=== PATIENT | male | born 1990 ===

== ENCOUNTER 2017-09-19 19:36 | Inpatient (IN) | payer OTHER, BC ==
[2017-09-19] MEDS ORDERED: Oxycodone/Acetaminophen 5/325 mg Tab PO STA (19:46)
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
[2017-09-19] MEDS ORDERED: Morphine 2 mg/ml ISec IVP STA (20:32)
[2017-09-19] MEDS ORDERED: Morphine 4 mg/ml ISec IVP STA (20:35)
[2017-09-19 20:51] LABS: ALB/GLOB RATIO 1.4 (1.1-1.8); ALBUMIN 4.8 g/dL (3.0-4.8); ALT/SGPT 81 U/L (7-56); AST/SGOT 68 U/L (17-59); BLOOD UREA NITROGEN 19 mg/dL (7-21); CALCIUM 9.9 mg/dL (8.4-10.5); GFR AFRICAN-AMERICAN > 60; GFR NON-AFRICAN AMERICAN > 60
[2017-09-19 20:52] LABS: BASO # 0.03 K/mm3 (0.0-2.0); BASO % 0.3 % (0.0-3.0); EOS # 0.1 (0.0-0.7); GRAN # 7.61 (1.4-6.5); HEMOGLOBIN 16.3 g/dL (14.0-18.0); LYMPH # 1.5 (1.2-3.4); LYMPH % 14.9 % (22.0-35.0); MEAN CELL VOLUME 88.1 fl (80.0-105.0); MEAN CORPUSCULAR HEMOGLOBIN 31.9 pg (25.0-35.0); MEAN CORPUSCULAR HGB CONC 36.2 g/dl (31.0-37.0); MEAN PLATELET VOLUME 10.3 fl (7.0-11.0); MONO # 0.6 (0.1-0.6); MONO % 5.8 % (1.0-6.0); RBC 5.11 10^6/uL (3.5-6.1); RED CELL DISTRIBUTION WIDTH 12.7 % (11.5-14.5); WHITE BLOOD COUNT 9.8 10^3/ul (4.5-11.0)
[2017-09-19 20:56] LABS: INR 1.09 (0.93-1.08); PARTIAL THROMBOPLASTIN TIME 29.1 Seconds (25.1-36.5); PROTHROMBIN TIME 12.5 SECONDS (9.4-12.5)
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
[2017-09-19] MEDS ORDERED: Sodium Chloride 0.9% 1,000 ML IV STA (21:40)
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
[2017-09-19 22:53] LABS: TROPONIN I < 0.01 ng/mL
[2017-09-19 23:33] LABS: CK-MB 0.9 ng/mL (0.0-3.6)
--- NOTE | 2017-09-19 23:59 | US ---
EXAM: US Abdomen Limited, Right Upper Quadrant CLINICAL HISTORY: 26 years old, male; Abnormal findings; Abnormal lab test; Elevated liver enzymes; Additional info: Elevated lft TECHNIQUE: Real-time ultrasound of the right upper quadrant with image documentation. COMPARISON: No relevant prior studies available. FINDINGS: Liver: Fatty infiltration. No mass. No intrahepatic ductal dilatation. Gallbladder: No definite gallstones. No wall thickening. No pericholecystic fluid. No sonographic Allan's sign. Common bile duct: No dilatation. No stones. Pancreas: Obscured by overlying bowel gas. Right kidney: Normal echogenicity. No hydronephrosis. IMPRESSION: 1.No acute findings. 2.Non-acute findings are described above.
[2017-09-20] MEDS ORDERED: Morphine 4 mg/ml ISec IVP ONE (00:10)
[2017-09-20] MEDS ORDERED: Oxycodone/Acetaminophen 5/325 mg Tab PO PRN (02:52)
[2017-09-20] MEDS ORDERED: Morphine 4 mg/ml ISec IVP PRN (02:52)
[2017-09-20 05:25] LABS: BARBITURATES, UR NEGATIVE (NEGATIVE); BENZODIAZEPINES, UR NEGATIVE (NEGATIVE); OPIATES, UR POSITIVE (NEGATIVE); PHENCYCLIDINE, UR NEGATIVE (NEGATIVE)
--- NOTE | 2017-09-20 09:51 | CARD ---
APPROVED REPORT EKG Measurement Heart [id number] <Conclusion> Normal sinus rhythm Normal ECG
[2017-09-20] MEDS ORDERED: Midazolam 2 MG/2 ML VIAL ONE (09:52)
[2017-09-20] MEDS ORDERED: Propofol 10 mg/ml Inj (20 ML) ONE (09:52)
[2017-09-20] MEDS ORDERED: Rocuronium 10 mg/ml (5 ml) ONE (09:53)
--- NOTE | 2017-09-20 09:58 | RAD ---
HISTORY: admission COMPARISON: No prior. FINDINGS: LUNGS: No active pulmonary disease. PLEURA: No significant pleural effusion identified, no pneumothorax apparent. CARDIOVASCULAR: Normal. OSSEOUS STRUCTURES: No significant abnormalities. VISUALIZED UPPER ABDOMEN: Normal. OTHER FINDINGS: None. IMPRESSION: No active disease.
[2017-09-20] MEDS ORDERED: Bupivacaine 0.5% Inj(30mL) ONE ×2 (11:16→13:11)
[2017-09-20] MEDS ORDERED: Lidocaine 2% Inj (20ml) ONE (11:16)
[2017-09-20] MEDS ORDERED: Glycopyrrolate 0.2 mg/ml (2ml vial) ONE (13:03)
[2017-09-20] MEDS ORDERED: Neostigmine Methylsulfate 3mg/3ml Syringe IV ONE (13:03)
[2017-09-20] MEDS ORDERED: Lidocaine 1% Inj (20ml) ONE (13:11)
[2017-09-20] MEDS ORDERED: HYDROmorphone 0.5 mg/0.5 ml ISec IVP PRN (14:02)
--- NOTE | 2017-09-20 14:12 | PCM.ANESB3 ---
Femoral Nerve Block - Femoral Nerve Block Date of Procedure: 09/20/17 Anesthesiologist: Brenden Evans, M>D> Pre-Procedure Diagnosis: fracture left tibia Post-Procedure Diagnosis: fracture left tibia Procedure Performed: Femoral Nerve Block Left - Procedure Femoral Nerve Block: The procedure was explained to the patient that it is for the post-operative pain management. Consent was obtained after a thorough discussion with the patient regarding the benefits and possible complications of local anesthetic block of the femoral nerve at the inguinal crease area. The patient was brought to the operating room and standard monitors were applied. Time-out was held with the circulating nurse to confirm the correct surgery and the appropriate block. After surgery was done under general anesthesia. . The femoral artery was then carefully palpated. The ultrasound transducer was then applied to this area in the transverse plane and the femoral nerve was visualized lateral to the femoral artery and underneath the fascia iliaca. After thorough identification, the inguinal crease area was prepped with Betadine solution three times and 1 % Lidocaine was injected subcutaneously for topical anesthesia. At this point, a #22 gauge Stimuplex 2-inch needle was inserted immediately lateral to the femoral artery pulse at the inguinal crease and advanced perpendicularly. The needle was inserted to the ultrasound transducer in-plane towards the femoral nerve in a [id number] direction. Needle advancement was performed carefully under direct ultrasound visualization. Nerve stimulator was used and twitch of the quadriceps muscle was obtained at current of _.4____ MA. After negative aspiration, _15____cc of _.5____% _bupivacaine ____was injected and this was followed with __10____ cc of __2 % _ lidocaine . Under ultrasound guidance the local anesthetics were observed spreading below fascia iliaca and around the femoral nerve. The needle was removed intact and sterile dressing was applied. The patient had stable vital signs. The patient tolerated the femoral nerve block well with stable vital signs and was prepared for subsequent surgery.
[2017-09-20] MEDS ORDERED: Lactated Ringer's 1,000 ML IV SCH (14:15)
--- NOTE | 2017-09-20 14:18 | PCM.ANESB2 ---
Popliteal Nerve Block - Popliteal Nerve Block Date of Procedure: 09/20/17 Anesthesiologist: Brenden Evans M.D. Pre-Procedure Diagnosis: fracture left tibia Post-Procedure Diagnosis: Fracture left tibia Procedure Performed: Popliteal Nerve Block Left - Procedure Popliteal Nerve Block: This procedure was explained to the patient that it is for post-operative pain management. Consent was obtained after a thorough discussion with the patient regarding the benefits and possible complications of local anesthetic block of the sciatic nerve at the popliteal level. The patient was brought to the operating room and standard monitors are applied. Time-out was held with the circulating nurse to confirm the correct surgery and the appropriate block. After operaton was finished under general anesthesia, , patient's operative leg was gently raised and supported and the groove in between the biceps femoris and vastus lateralis muscles was carefully palpated. The skin approximately 8cm above the popliteal crease was then marked. The ultrasound transducer was then applied to the posterior thigh approximately 8cm above the popliteal crease in the transverse plane and the sciatic nerve before its division was visualized lateral to the popliteal artery and in between the bicep femoris and semimembranosus/semitendinosus muscles. After identification, the lateral portion of the thigh was prepped with Betadine solution three times and Lidocaine 1% was injected subcutaneously for topical anesthesia. At this point, a # 21 gauge Stimuplex insulated 4 inch needle was inserted into pre-marked area and advanced in a perpendicular direction. The needle was inserted above the ultrasound transducer in-plane towards the sciatic nerve in a [id number] direction. Needle advancement was performed carefully under direct ultrasound visualization. Nerve stimulator was used and dorsiflexion of the _left____ foot was elicited at a current of _.4____ MA. After repeated negative aspiration, _15____cc of __.5___ % _Bupivacaine was injected and this was flowed with _10 cc of _2 % _Lidocaine . Under ultrasound guidance the local anesthetics were observed surrounding sciatic nerve . The needle was removed intact and sterile dressing was applied. The patient tolerated the popliteal nerve block well with stable vital signs .
[2017-09-20 14:45] LABS: ALB/GLOB RATIO 1.7 (1.1-1.8); ALT/SGPT 58 U/L (7-56); AST/SGOT 42 U/L (17-59); BLOOD UREA NITROGEN 12 mg/dL (7-21); CALCIUM 7.9 mg/dL (8.4-10.5); GFR AFRICAN-AMERICAN > 60; GFR NON-AFRICAN AMERICAN > 60
[2017-09-20] MEDS ORDERED: Albuterol-Ipratrop 3 mg / 0.5 (3 ml) UD IH PRN (16:02)
[2017-09-20] MEDS ORDERED: Benzocaine/Menthol (Cepacol) Lozenge MT PRN (16:11)
[2017-09-20] MEDS: Sodium Chloride 0.45% 1,000 ML IV SCH (17:07)
--- NOTE | 2017-09-20 17:14 | RAD ---
PROCEDURE: Radiographs of the left tibia and fibula. HISTORY: s/p left leg surgery COMPARISON: None available. TECHNIQUE: Frontal and lateral views obtained. FINDINGS: BONES: No fracture or destructive lesion. Minimally displaced oblique fracture mid fibular diaphysis. Status post ORIF distal tibial fracture with plate and screw fixation. Fragments in anatomic alignment. Bony detail obscured by overlying plaster splint. JOINT SPACES: Unremarkable. OTHER FINDINGS: None. IMPRESSION: ORIF distal tibial fracture. Minimally displaced mid fibular fracture.
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
[2017-09-21] MEDS: Oxycodone/Acetaminophen 5/325 mg Tab PO PRN ×5 (01:10→22:02)
[2017-09-21] MEDS ORDERED: Morphine 4 mg/ml ISec IVP ONE (02:02)
[2017-09-21] MEDS: Sodium Chloride 0.45% 1,000 ML IV SCH (02:16)
[2017-09-21] MEDS ORDERED: Oxycodone/Acetaminophen 5/325 mg Tab PO ONE (03:33)
[2017-09-21 07:12] LABS: HEMOGLOBIN 12.9 g/dL (14.0-18.0); MEAN CELL VOLUME 88.6 fl (80.0-105.0); MEAN CORPUSCULAR HEMOGLOBIN 31.3 pg (25.0-35.0); MEAN CORPUSCULAR HGB CONC 35.3 g/dl (31.0-37.0); RBC 4.12 10^6/uL (3.5-6.1); RED CELL DISTRIBUTION WIDTH 12.7 % (11.5-14.5); WHITE BLOOD COUNT 14.4 10^3/ul (4.5-11.0)
[2017-09-21 07:23] LABS: ALB/GLOB RATIO 1.5 (1.1-1.8); ALT/SGPT 51 U/L (7-56); AST/SGOT 44 U/L (17-59); BLOOD UREA NITROGEN 7 mg/dL (7-21); CALCIUM 7.9 mg/dL (8.4-10.5); GFR AFRICAN-AMERICAN > 60; GFR NON-AFRICAN AMERICAN > 60
[2017-09-21 08:24] LABS: HEPATITIS B SURFACE AG Negative (NEGATIVE)
[2017-09-21 08:33] LABS: HEPATITIS B CORE AB NEGATIVE (NEGATIVE)
[2017-09-21 08:41] LABS: HEPATITIS C ANTIBODY NEGATIVE (NEGATIVE)
[2017-09-21 09:18] LABS: HEPATITIS A IGM NEGATIVE (NEGATIVE)
--- NOTE | 2017-09-21 12:59 | PCM.SURG1 ---
Surgeon's Initial Post Op Note - Surgeon's Notes Surgeon: gauri Saw Man: alina Type of Anesthesia: General Endo Pre-Operative Diagnosis: displaced distal tibia and fibular fracture Operative Findings: see dictation Post-Operative Diagnosis: same Operation Performed: ORIF distal tibia. closed treatment fibula fx Specimen/Specimens Removed: none Estimated Blood Loss: EBL {In ML}: 50 Post-Op Condition: Good Date of Surgery/Procedure: 09/20/17 Time of Surgery/Procedure: 11:00
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
[2017-09-21 22:52] VITALS: O2SAT 97
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
[2017-09-22] MEDS: Oxycodone/Acetaminophen 5/325 mg Tab PO PRN ×2 (02:04→12:27)
[2017-09-22 07:33] LABS: HEMOGLOBIN 13.1 g/dL (14.0-18.0); MEAN CELL VOLUME 88.6 fl (80.0-105.0); MEAN CORPUSCULAR HEMOGLOBIN 31.1 pg (25.0-35.0); MEAN CORPUSCULAR HGB CONC 35.1 g/dl (31.0-37.0); MEAN PLATELET VOLUME 9.7 fl (7.0-11.0); RBC 4.21 10^6/uL (3.5-6.1); RED CELL DISTRIBUTION WIDTH 12.7 % (11.5-14.5); WHITE BLOOD COUNT 11.8 10^3/ul (4.5-11.0)
[2017-09-22 08:12] VITALS: BP 118/66; PULSE 94; RESP 20; TEMP 98.5
--- NOTE | 2017-09-22 14:43 | RAD ---
PROCEDURE: Fluoroscopy up to 1 hr. HISTORY: O.R.I.F. FX. LEFT TIB - FIB COMPARISON: None TECHNIQUE: Standard protocol for this study/examination. FINDINGS: Total fluoroscopic time (continuous mode) utilized during the procedure 95.5 (seconds). Total exam DLP: (mGy) 5.85 IMPRESSION: Less than 1 hr fluoroscopic time utilized during performance of the procedure.
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
== END 2017-09-22 13:50 | disposition home or self-care (01) | DRG 494 ==
LOC: ED 19:36 → ERH 22:03 → 5RSO 09-20 00:05
PROVIDERS: ADMIT Internal Medicine; ATTEND Internal Medicine
PROC: 0QSKXZZ Reposition Left Fibula, External Approach (ICD-10-PCS; 2017-09-20)
PROC: 3E0T3BZ Introduction of Anesthetic Agent into Peripheral Nerves and Plexi, Percutaneous Approach (ICD-10-PCS; 2017-09-20)
PROC: 3E0T3BZ Introduction of Anesthetic Agent into Peripheral Nerves and Plexi, Percutaneous Approach (ICD-10-PCS; 2017-09-20)
PROC: 0QSH04Z Reposition Left Tibia with Internal Fixation Device, Open Approach (ICD-10-PCS; principal; 2017-09-20 09:28)
DX: S82.242A Displaced spiral fracture of shaft of left tibia, initial encounter for closed fracture (principal); S82.442A Displaced spiral fracture of shaft of left fibula, initial encounter for closed fracture; V29.40XA Motorcycle driver injured in collision with unspecified motor vehicles in traffic accident, initial encounter; J45.909 Unspecified asthma, uncomplicated; D64.9 Anemia, unspecified; D72.829 Elevated white blood cell count, unspecified; K76.0 Fatty (change of) liver, not elsewhere classified; Y93.I9 Activity, other involving external motion; Y92.410 Unspecified street and highway as the place of occurrence of the external cause